=== PATIENT | female | born 1980 | race Two or more races ===

== ENCOUNTER 2020-01-13 13:55 | Outpatient (CLI) | payer MEDICAID, OTHER ==
[2020-01-13] MEDS ORDERED: WHEA1POW5 PO (15:31)
[2020-01-13] MEDS ORDERED: BUSP15TA PO (15:31)
[2020-01-13] MEDS ORDERED: cbd PO (15:31)
[2020-01-13] MEDS ORDERED: MELA1TAB6 PO (15:31)
[2020-01-13] MEDS ORDERED: ESCI20TA PO (15:31)
[2020-01-13] MEDS ORDERED: FOLI0.4T2 PO (15:31)
[2020-01-13] MEDS ORDERED: FEXO180T15 PO (15:31)
[2020-01-13] MEDS ORDERED: CHOL10003 PO (15:31)
[2020-01-13] MEDS ORDERED: FLUT9.9S NAS (15:31)
[2020-01-13] MEDS ORDERED: MULT1TAB9 PO (15:31)
[2020-01-13] MEDS ORDERED: ACET-1600 PO (15:31)
== END 2020-01-13 23:59 | disposition home or self-care (01) ==
LOC: STAR 13:55
PROVIDERS: ATTEND Internal Medicine Geriatric Medicine
DX: Z02.9 Encounter for administrative examinations, unspecified (principal)

== ENCOUNTER 2020-01-19 10:17 | Day surgery (SDC) | payer MEDICAID ==
[~2020-01-19] VITALS: Ht 160 cm; Wt 131.6 kg
[~2020-01-19 10:17] MED LIST: ACET-1600 PO; BUSP15TA PO; CHOL10003 PO; ESCI20TA PO; FEXO180T15 PO; FLUT9.9S NAS; FOLI0.4T2 PO; MELA1TAB6 PO; MULT1TAB9 PO; WHEA1POW5 PO; cbd PO
[2020-01-19] MEDS ORDERED: LACTATED RINGERS 1,000 ML IV SCH (10:24)
[2020-01-19] MEDS ORDERED: CHLORHEXIDINE 15 ML UDC MM ONE (10:30)
[2020-01-19 10:51] VITALS: BP 132/84
[2020-01-19 11:47] LABS: HCG UR SG 1.024 (1.003-1.030)
[2020-01-19] MEDS ORDERED: PROPOFOL 100 ML ONE (14:06)
[2020-01-19] MEDS ORDERED: MIDAZOLAM 1 MG/ML, 2ML ONE (14:10)
[2020-01-19] MEDS ORDERED: PROMETHAZINE 25 MG/ML, 1ML IV PRN (14:30)
[2020-01-19] MEDS ORDERED: ACETAMINOPHEN 325 MG TABLET PO PRN (14:30)
[2020-01-19] MEDS ORDERED: DIAZEPAM 5 MG/ML, 2ML IVPush PRN (14:30)
[2020-01-19] MEDS ORDERED: ALBUTEROL SULFATE 2.5 MG/3 ML NPPB PRN (14:30)
[2020-01-19] MEDS ORDERED: MEPERIDINE/PF 25MG/0.5ML IVPush PRN (14:30)
[2020-01-19] MEDS ORDERED: hydrALAzine 20 MG/ML, 1ML IV PRN (14:30)
[2020-01-19] MEDS ORDERED: KETOROLAC 30 MG/1 ML IV PRN (14:30)
[2020-01-19] MEDS ORDERED: FENTANYL PF 100 MCG/2ML IV PRN (14:30)
[2020-01-19] MEDS ORDERED: LABETALOL 5MG/ML, 20ML IV PRN (14:30)
[2020-01-19] MEDS ORDERED: HYDROmorphone 2 MG/ML, 1ML IVPush PRN (14:30)
[2020-01-19] MEDS ORDERED: OXYcodone 5 MG/5 ML ORAL.SOL UDC PO PRN (14:30)
== END 2020-01-19 16:30 | disposition home or self-care (01) ==
LOC: OUT 10:17
PROVIDERS: ATTEND Internal Medicine Geriatric Medicine
DX: R19.4 Change in bowel habit (principal); Z11.59 Encounter for screening for other viral diseases; D12.2 Benign neoplasm of ascending colon; K64.0 First degree hemorrhoids; K22.8 Other specified diseases of esophagus; R13.10 Dysphagia, unspecified; K21.9 Gastro-esophageal reflux disease without esophagitis; F41.9 Anxiety disorder, unspecified; E66.9 Obesity, unspecified; Z68.43 Body mass index [BMI] 50.0-59.9, adult; Z98.890 Other specified postprocedural states; Z79.899 Other long term (current) drug therapy; Z90.49 Acquired absence of other specified parts of digestive tract; Z82.49 Family history of ischemic heart disease and other diseases of the circulatory system; Z82.5 Family history of asthma and other chronic lower respiratory diseases
CPT/HCPCS: 36415; 43239; 45380; 45385; 81025; 87635; 88305; J2250; J2704; J7120